=== PATIENT | female | born 1955 | race Two or more races ===

== ENCOUNTER 2017-10-30 10:51 | Emergency (ER) | payer MEDICARE, OTHER ==
[~2017-10-30] VITALS: Ht 149.9 cm; Wt 96.2 kg
[2017-10-30 10:53] VITALS: BP 161/81
== END 2017-10-30 12:47 | disposition home or self-care (01) ==
LOC: ED 12:40
DX: B02.9 Zoster without complications (principal); N76.4 Abscess of vulva; E11.9 Type 2 diabetes mellitus without complications
CPT/HCPCS: 99283